=== PATIENT | male | born 1955 | race Caucasian/White ===

== ENCOUNTER 2024-03-21 12:35 | Inpatient (IN) | payer SELFPAY ==
[2024-03-21 14:34] LABS: HEMATOCRIT 49.3 % (35.4-49); HEMOGLOBIN 16.4 G/dL (11.7-16.9); MCH 31.7 pg (25.7-33.7); MCHC 33.3 g/dl (32.0-35.9); MEAN CELL VOLUME 95.4 fl (80-96); MEAN PLT VOLUME 9.1 fl (7.5-11.1); PLATELET COUNT 181.8 10^3/uL (134-434); RBC 5.17 10^6/uL (4.00-5.60); RDW 14.9 % (11.9-15.9)
[2024-03-21] MEDS ORDERED: ACETAMINOPHEN INJECTION 100 ML IVPB ONE (14:37)
[2024-03-21] MEDS: ACETAMINOPHEN 1000 MG/100 ML BAG IVPB ONE (14:40)
[2024-03-21 15:17] LABS: VENOUS BASE EXCESS 1.4 mmol/L (-2-2); VENOUS O2 SATURATION 53.4 % (70-80); VENOUS PCO2 57.5 mmHg (38-52); VENOUS PH 7.323 (7.310-7.410)
[2024-03-21 15:27] LABS: INR 0.97 (0.83-1.09); PROTHROMBIN TIME (PATIENT) 11.1 SEC (9.7-13.0)
[2024-03-21 15:40] LABS: ALBUMIN 4.2 g/dl (3.4-5.0); BILIRUBIN,TOTAL 0.6 mg/dl (0.2-1); CALCIUM 9.1 mg/dl (8.5-10.1); MAGNESIUM 2.3 mg/dL (1.8-2.4); TOT PROT 7.3 g/dl (6.4-8.2)
[2024-03-21] MEDS: PIPERACILLIN/TAZOB 3.375 GM 3.375 GM in DEXTROSE 5%-WATER - 50 ML IVPB ONE (16:10)
[2024-03-21] MEDS ORDERED: PIPERACILLIN/TAZOBACTAM 3.375 GM VIAL IVPB ONE (16:12)
[2024-03-21] MEDS ORDERED: VANCOMYCIN 1,000 MG VIAL (RESTRICTED TO ID ONLY) ONE (16:13)
[2024-03-21] MEDS: VANCOMYCIN 1,000 MG in DEXTROSE 5%-WATER - 250 ML IVPB ONE (16:38)
[2024-03-21 17:03] LABS: LACTIC ACID 3.4 mmol/L (0.4-2.0)
[2024-03-21 17:14] LABS: PLATELET ESTIMATE ADEQUATE
[2024-03-21] MEDS: SODIUM CHLORIDE 1,000 ML IV STA (17:23)
[2024-03-21 19:12] VITALS: BMI 41.8
[2024-03-21 19:43] LABS: LACTIC ACID 2.5 mmol/L (0.4-2.0)
[2024-03-22] MEDS ORDERED: PIPERACILLIN/TAZOB 4.5 GM 4.5 GM in DEXTROSE 5%-WATER 100 ML IVPB SCH (03:00)
[2024-03-22] MEDS: PIPERACILLIN/TAZOB 4.5 GM 4.5 GM in DEXTROSE 5%-WATER 100 ML IVPB SCH (03:15)
[2024-03-22] MEDS: VANCOMYCIN PREMIX 1.5 GM 1,500 MG/300 ML BAG IVPB SCH (08:16)
[2024-03-22 08:27] LABS: ANION GAP 8 mmol/L (4-13); CHLORIDE 104 mmol/L (98-107); CO2 30 mmol/L (21-32); CREATININE 1.1 mg/dl (0.6-1.3); GLUCOSE,RANDOM 113 mg/dl (74-106); SODIUM 142 mmol/L (136-145)
[2024-03-22] MEDS ORDERED: VANCOMYCIN HCL 1,500 MG in DEXTROSE 5%-WATER - 250 ML IVPB SCH (09:00)
[2024-03-22 09:28] LABS: BASO % 0.7 % (0-2.0); EOS % 1.6 % (0-4.5); HEMATOCRIT 45.1 % (35.4-49); LYMPH % 13.8 % (8-40); MCH 31.6 pg (25.7-33.7); MCHC 33.3 g/dl (32.0-35.9); MEAN CELL VOLUME 94.9 fl (80-96); MEAN PLT VOLUME 8.9 fl (7.5-11.1); MONO % 10.4 % (3.8-10.2); NEUT % 73.5 % (42.8-82.8); PLATELET COUNT 203 10^3/uL (134-434); RBC 4.75 M/mm3 (4.00-5.60); RDW 14.6 % (11.9-15.9); WHITE BLOOD COUNT 10.3 K/mm3 (4.0-10.0)
[2024-03-22] MEDS: LACTATED RINGERS SOLUTION 1,000 ML/1,000 ML INFUS.BAG IV SCH (12:22)
[2024-03-23 06:11] VITALS: PULSE 74; RESP 18
[2024-03-23 10:23] VITALS: BP 128/72; TEMP 98.1
== END 2024-03-23 12:51 | disposition home or self-care (01) | DRG 140 ==
LOC: FER 12:35 → FM/S 17:14
PROVIDERS: ADMIT Internal Medicine
DX: J44.1 Chronic obstructive pulmonary disease with (acute) exacerbation (principal); R50.9 Fever, unspecified; I10 Essential (primary) hypertension; R05.9 Cough, unspecified; R53.1 Weakness; D72.829 Elevated white blood cell count, unspecified; Z86.73 Personal history of transient ischemic attack (TIA), and cerebral infarction without residual deficits
CPT/HCPCS: 0241U-QW; 36415; 71045-TC-FY; 71250-TC; 80048; 80053; 81003; 81015; 82803; 83605; 83735; 83880; 84484; 85025; 85027; 85610; 86850; 86900; 86901; 87040; 87086; 93005; 99285-25; J0131